=== PATIENT | male | born 1940 | race African-American/Black ===

== ENCOUNTER 2022-10-02 23:16 | Inpatient (IN) | payer BC ==
[~2022-10-02] VITALS: Ht 177.8 cm; Wt 73.0 kg
[2022-10-03 01:27] LABS: BASOPHILS % 0.3 % (0.0-2.0); EOSINOPHILS % 1.3 % (0.0-5.0); HEMATOCRIT. 40.4 % (42.0-52.0); HEMOGLOBIN. 13.6 g/dL (14.0-18.0); LYMPHOCYTES % 22.1 % (20.0-50.0); MEAN CORPUSCULAR HEMOGLOBIN 29.6 pg (28.0-32.0); MEAN CORPUSCULAR VOLUME 87.7 fL (80.0-94.0); MEAN PLATELET VOLUME 8.2 fl (7.4-10.4); MONOCYTES % 8.9 % (2.0-8.0); NEUTROPHILS % 67.4 % (40.0-76.0); PLATELET 179 x1000/uL (130-400); RED BLOOD CELL COUNT 4.61 mill/uL (4.7-6.1); RED CELL DISTRIBUTION WIDTH 13.3 % (11.6-14.6)
[2022-10-03 01:33] LABS: CHLORIDE 107 mEq/L (98-107)
[2022-10-03] MEDS ORDERED: ASPIRIN 325MG TABLET PO NR (05:15)
[2022-10-03 12:33] VITALS: BP 141/82
[2022-10-03 12:58] VITALS: BP 141/82
[2022-10-03] MEDS ORDERED: MAGNESIUM/ALUMINUM HYDROXIDE/SIMETHICONE 30ML UDC PO PRN (14:30)
[2022-10-03] MEDS ORDERED: DIPHENHYDRAMINE 50MG/ML VIAL IV PRN (14:30)
[2022-10-03] MEDS ORDERED: ACETAMINOPHEN 325MG TABLET PO PRN ×2 (14:30)
[2022-10-03] MEDS ORDERED: ONDANSETRON HCL 4MG/2ML INJ IV PRN (14:30)
[2022-10-03 14:42] LABS: HEPATITIS B SURFACE ANTIGEN NEGATIVE
[2022-10-03] MEDS: ENOXAPARIN 40MG/0.4ML SYR SUBCUT SCH (15:39)
[2022-10-03 16:00] VITALS: BP 123/68
[2022-10-03 20:00] VITALS: BP 175/87
[2022-10-03] MEDS: FAMOTIDINE 20MG TABLET PO SCH (20:51)
[2022-10-03] MEDS: SODIUM CHLORIDE 0.9% INJ 3ML FLUSH IVF SCH (20:51)
[2022-10-03] MEDS: CLONIDINE 0.1MG TABLET PO PRN (20:51)
[2022-10-03] MEDS ORDERED: ZOLPIDEM TARTRATE 5MG TABLET PO PRN (21:00)
[2022-10-04 00:05] VITALS: BP 157/87
[2022-10-04 04:13] VITALS: BP 159/75
[2022-10-04] MEDS: SODIUM CHLORIDE 0.9% INJ 3ML FLUSH IVF SCH ×3 (06:00→20:23)
[2022-10-04 08:00] VITALS: BP 171/78
[2022-10-04] MEDS: LOSARTAN POTASSIUM 50 MG TABLET PO SCH (08:50)
[2022-10-04] MEDS: ASPIRIN 81MG EC TABLET PO SCH (08:50)
[2022-10-04] MEDS ORDERED: LOSARTAN POTASSIUM 25 MG TABLET PO SCH (09:00)
[2022-10-04 12:00] VITALS: BP 149/63
[2022-10-04] MEDS: ENOXAPARIN 40MG/0.4ML SYR SUBCUT SCH (15:40)
[2022-10-04 16:00] VITALS: BP 156/75
[2022-10-04 20:20] VITALS: BP 173/80
[2022-10-04] MEDS: FAMOTIDINE 20MG TABLET PO SCH (20:22)
[2022-10-04] MEDS: CLONIDINE 0.1MG TABLET PO PRN (20:22)
[2022-10-04] MEDS ORDERED: ATORVASTATIN CALCIUM 20MG TABLET PO NR (21:00)
[2022-10-04] MEDS ORDERED: ATORVASTATIN CALCIUM 20MG TABLET PO SCH ×2 (21:00)
[2022-10-05] VITALS: BP 147/80
[2022-10-05 04:00] VITALS: BP 147/77
[2022-10-05 07:35] VITALS: BP 133/23
[2022-10-05] MEDS: ASPIRIN 81MG EC TABLET PO SCH (09:42)
[2022-10-05] MEDS: LOSARTAN POTASSIUM 50 MG TABLET PO SCH (09:42)
[2022-10-05 11:18] VITALS: BP 133/23
[2022-10-05 12:00] VITALS: BP 135/60
[2022-10-05] MEDS ORDERED: ATORVASTATIN CALCIUM 40MG TABLET PO SCH (21:00)
== END 2022-10-05 12:08 | disposition home or self-care (01) | DRG 69 ==
LOC: ER 23:34 → 3WST 10-03 05:34 → EDBEDREQTM 10-03 05:39 → EDBEDREQ 10-03 05:39
PROVIDERS: ADMIT Internal Medicine; ATTEND Internal Medicine
PROC: 4A00X4Z Measurement of Central Nervous Electrical Activity, External Approach (ICD-10-PCS; principal; 2022-10-05)
DX: G45.9 Transient cerebral ischemic attack, unspecified (principal); R47.01 Aphasia; I10 Essential (primary) hypertension; E11.65 Type 2 diabetes mellitus with hyperglycemia; E78.00 Pure hypercholesterolemia, unspecified; Z85.46 Personal history of malignant neoplasm of prostate; Z86.73 Personal history of transient ischemic attack (TIA), and cerebral infarction without residual deficits
CPT/HCPCS: 36415; 70551; 71045; 80053; 80061; 83036; 84484; 85025; 86803; 87340; 93005; 93880; 95816; 99291; J1650